=== PATIENT | female | born 1935 | race Caucasian/White ===

== ENCOUNTER 2017-01-06 17:29 | Inpatient (IN) | payer MEDICARE, BC ==
--- NOTE | ~2017-01-06 | CO ---
Unit #: [id number] #: [id number] Patient: JOSSY REDD [id number] [address] [place], [place] [address] [id number] I MR#: [id number] NAME: JOSSY REDD. ROOM: 55 Age: 81 Sex: F Admission Date: 01/06/2017 : 1935 Attending Physician: Josselyn Hope M.D. Primary Care Physician: Letty Edwards M.D. CONSULTATION REPORT HISTORY OF PRESENT ILLNESS Ms. Jossy Redd is a lady with a history of no significant pulmonary issues, but history of lung cancer, status post resection in 1995; history of bladder cancer, status post placement of ileal conduit; who now presents with worsening shortness of breath for approximately 2 weeks. The patient was hospitalized in 12/24/2016 to 12/25/2016 with chest tightness. The patient had CT chest at that time which was negative. She did have some rib fractures and she did have emphysema. The patient was continued to have shortness of breath. Therefore, she went to her primary care doctor and approximately 1 week ago, she was placed on antibiotics and steroids. She does not recall the name of either the antibiotic or the steroids. She now presents with worsening shortness of breath. In the emergency room, she is being admitted for respiratory distress. Blood gas; 7.405, 39.5, 56.8 on room air. The patient denies previous oxygen, denies previous inhaler use. The patient was seen with occasional productive cough, anorexia, weakness. No abdominal pain. No nausea, vomiting, diarrhea, fevers or chills. PAST MEDICAL HISTORY Significant for history of chest pain, hypertension, history of lung carcinoma, history of bladder cancer, history of diverticular disease, history of degenerative joint disease, history of fall approximately 1 month of rib fractures. PAST SURGICAL HISTORY Significant for radical cystectomy with ileal conduit placement, right lower lobe lobectomy, history of colonoscopy, history of cataract surgery, history of hysterectomy. SOCIAL HISTORY The patient lives alone. Drives independently. Quit smoking multiple years ago. No history of alcohol or polysubstance use. FAMILY HISTORY Dad had early at age 57 likely myocardial infarction, otherwise family history negative for respiratory or cardiac issues. ALLERGIES The patient is allergic to promethazine, ciprofloxacin, penicillin, naproxen, ampicillin, Keflex, nitrofurantoin, Pyridium, and Levaquin. HOME MEDICATIONS Include Citracal plus D daily, multivitamin daily, Zestril 2.5 mg daily, Tylenol 500 mg q.6 hours p.r.n., aspirin 81 mg daily, tramadol 50 mg Unit #: [id number] #: [id number] Patient: JOSSY REDD Nidhi gonzáles. p.r.n., promethazine with codeine 5 mL q.4 hours p.r.n. REVIEW OF SYSTEMS Complete review of systems is negative except as indicated in the history of present illness. The patient may have had a little bit of weight loss. PHYSICAL EXAMINATION VITAL SIGNS: T-current is 97.4, pulse 88, respiratory rate 16, blood pressure 139/87 maximum blood pressure. HEENT: Extraocular movements are intact. CHEST: Clear to auscultation bilaterally. CARDIOVASCULAR: Regular rate. No gallop. NECK: Shows no accessory muscle use. EXTREMITIES: Shows no evidence of edema. SKIN: Shows no rashes. ASSESSMENT AND PLAN 1. An 81-year-old lady with acute respiratory failure likely chronic obstructive pulmonary disease exacerbation. I am going to increase the steroids a little bit. Continue scheduled nebs. I would like to keep the patient having nebs every 4 hours while she is awake. 2. Hypoxia. We are going to check a carboxyhemoglobin, but likely this is due to progressive chronic obstructive pulmonary disease. 3. Scheduled nebs and hopefully we will be able to get the patient out of treatment to home in 3 to 4 days. Thank you very much for this consult and allowing us to participate in the care of this patient. Please page me at [phone] if you have any questions. Dictated by... Leticia Logan TD: 01/07/2017 23:11 JOB #: [id number] CONSULTATION REPORT X Bucky Jeff MD CONSULTATION REPORT
--- NOTE | ~2017-01-06 | DS ---
Unit #: [id number] #: [id number] Patient: JOSSY REDD [id number] [address] [place], [place] [address] [id number] I MR#: [id number] NAME: JOSSY REDD. ROOM: 55 Age: 81 Sex: F Admission Date: 01/06/2017 : 1935 Discharge Date: 01/08/2017 Attending Physician: Josselyn Hope M.D. Primary Care Physician: Letty Edwards M.D. DISCHARGE SUMMARY PRINCIPAL DIAGNOSES 1. Acute exacerbation of chronic obstructive pulmonary disease. 2. Acute hypoxic respiratory failure, now resolved. 3. Acute kidney injury, likely a combination of prerenal with underlying DAVE inhibitor use. 4. Hypertension. 5. History of bladder cancer. 6. Recent rib fracture, right sided. CLIENT ADVISOR Dr. Jeff - Pulmonology. PROCEDURES Chest x-ray on January 06, 2017, with no acute findings. CLINICAL HISTORY/HOSPITAL COURSE Ms. Redd is a very nice 81-year-old female who presents to the emergency department with dyspnea. Please refer to H and P for further details. O2 sats were normal in the emergency department but ABG revealed decreased pO2 of 56 and patient was subsequently admitted. The patient was place don IV Solu-Medrol in addition to empiric doxycycline and pulmonology was consulted. After a tapering of prednisone today, patient states she feels quite a bit better and her dyspnea has resolved. Room air oxygen saturations are normal at 95% and I am currently awaiting an ambulating O2 saturation. Assuming this is normal, I think she can be safely discharged home. I will note creatinine increased a bit to as high as 1.4 during hospitalization. Her baseline appears normal at approximately 1. Blood pressure has remained stable. I am going to discontinue her lisinopril and place her on a low dose of Norvasc and blood pressure can be followed up by her primary care provider. The patient's other chronic conditions remain stable. DISCHARGE CONDITION Stable. DISCHARGE STATUS Discharge to home. DISCHARGE MEDICATIONS 1. Norvasc 5 mg, half tablet p.o. daily. Unit #: [id number] #: [id number] Patient: JOSSY REDD 2. Doxycycline 100 mg p.o. b.i.d. for another three days. 3. Albuterol inhaler, one to two puffs every four hours p.r.n. for shortness of breath. 4. Prednisone taper 10 mg tablets, four tablets for three days, then three tablets for three days, then two tablets for three days, then one tablet for three days, then discontinue. 5. Tylenol 500 mg p.o. every four to six hours p.r.n. for pain. 6. Daily multivitamin. 7. Aspirin 81 mg daily. 8. Tramadol 50 mg b.i.d. p.r.n. for pain. 9. Citracal plus D, one tablet daily. DISCHARGE INSTRUCTIONS The patient was instructed to follow a heart healthy diet. She can increase her activity as tolerated. FOLLOWUP Patient will follow up with Dr. Jeff in approximately one month. She should follow up with Dr. Edwards, her primary care provider, in one month as well. Dictated by... Josselyn Hope M.D. NAMAN/paty TD: 01/10/2017 07:26 JOB #: [id number] DISCHARGE SUMMARY X Josselyn Hope MD X DISCHARGE SUMMARY
--- NOTE | ~2017-01-06 | CR63 ---
[facility] A Service of [facility] RADIOLOGY TEXT RESULTS PATIENT: JOSSY REDD LOCATION: [facility] : 35 UNIT #: [id number] AGE: [address]: Josselyn Hope MD SEX: F ORDER DR: [id number] [facility] [address]. [place], [place] [address] [id number] I MR#: [id number] Acc #: [id number] NAME: JOSSY REDD. : 1935 SEX: F STUDY DATE/TIME: 01/08/2017 7:48 UNIT: [facility] ROOM: [facility] STUDY DESCRIPTION: CR Chest 2 View Attending Physician: Josselyn Hope M.D. Ordering Physician: Eddie Hart M.D. Primary Care Physician: Letty Edwards M.D. MEDICAL IMAGING REPORT This report is preliminary unless electronic signature is present EXAM Chest 2 views 01/08/2017 INDICATIONS 81-year-old female with cough, congestion, shortness of air for a month. History of bladder cancer. TECHNIQUE Two-view chest COMPARISON 01/06/2017 FINDINGS Cardiac silhouette within normal limits. Vascularity unremarkable. There is no pneumothorax. No dense consolidation or pleural effusion. Probable bibasilar fibrosis and scarring right greater than left. Mild elevation or eventration of the right hemidiaphragm unchanged. There is thoracic spondylosis. IMPRESSION 1. Chronic-appearing lung changes. No definite superimposed active disease. 2. There are surgical changes in the right lung base. Dictated by... Alejo Gonzalez M.D. THIS IS AN ELECTRONICALLY VERIFIED REPORT Alejo Gonzalez M.D. at 01/09/2017 7:19 AM ESTHELA/ryan TD: 01/08/2017 15:02 [facility] A Service [facility] RADIOLOGY TEXT RESULTS PATIENT: JOSSY REDD LOCATION: [facility] : 35 UNIT #: [id number] AGE: [address]: Josselyn Hope MD SEX: F ORDER DR: MARIOLA #: [id number] MEDICAL IMAGING REPORT COPY
--- NOTE | ~2017-01-06 | HP ---
Unit #: [id number] #: [id number] Patient: JOSSY REDD [id number] [address] [facility]. [place], [place] [address] [id number] I MR#: [id number] NAME: JOSSY REDD. ROOM: 85999 Age: 81 Sex: F Admission Date: 01/06/2017 : 1935 Attending Physician: Steffanie Sanchez M.D. Primary Care Physician: Letty Edwards M.D. HISTORY AND PHYSICAL CHIEF COMPLAINT Short of breath. HISTORY OF PRESENT ILLNESS The patient is an 81-year-old female with past medical history of hypertension, lung cancer, bladder cancer, diverticular disease and degenerative joint disease who presented to the emergency department for evaluation of the above. Of note, the patient was hospitalized at [facility] December 24 through the 2016 for chest pain. She underwent CT of the chest PE protocol during that admission that showed no PE. She did have some nondisplaced fractures of the right 5th, 6th, 7th and possibly 8th ribs. Background emphysema was noted. I do not see that she had a stress test, but per the discharge summary, she was seen by cardiology. It is unclear if she had an echocardiogram. She was discharged home. She states that she has been short of breath since discharge. She states that she has dyspnea on exertion when walking across the room. She reports an occasionally productive cough. She states that she has 2-pillow orthopnea. She denies any paroxysmal nocturnal dyspnea. She has had decreased appetite. She denies any abdominal pain. No diarrhea. She does have constipation. In the emergency department chest x-ray showed no acute abnormality. BNP is 166. Arterial blood gas showed pH of 7.405, pCO2 of 39.5, pO2 of 56.8 on room air. She was given 125 mg of Solu-Medrol. She is being admitted to [facility] for evaluation and further treatment. PAST MEDICAL HISTORY 1. Admission to [facility] December 24 through the 2016 for chest pain. 2. Hypertension. 3. History of lung carcinoma status post lung resection back in 1995. 4. History of bladder cancer status post bladder removal and ileal conduit. 5. History of diverticular disease. 6. Degenerative joint disease. 7. History of fall a little over a month ago with rib fractures. PAST SURGICAL HISTORY 1. Radical cystectomy with ileal conduit placement. 2. Right lower lobectomy. 3. Colonoscopy. Unit #: [id number] #: [id number] Patient: JOSSY REDD 4. Cataract surgery. 5. Hysterectomy. SOCIAL HISTORY The patient lives alone. She still drives apparently. She quit smoking years ago. There is no alcohol or illicit drug use. FAMILY HISTORY Notable for her dad dieing at the age of 57 of a myocardial infarction. Her mother at the age of 86. ALLERGIES Promethazine, ciprofloxacin, penicillin, naproxen, ampicillin, cephalexin, nitrofurantoin, Cipro, phenazopyridine, Levaquin. HOME MEDICATIONS 1. Citracal plus D daily. 2. Multivitamin daily. 3. Zestril 2.5 mg daily. 4. Tylenol 500 mg q.4-6 hours p.r.n. 5. Aspirin 81 mg daily. 6. Tramadol 50 mg b.i.d. p.r.n. 7. Promethazine/codeine 5 mL q.4 hours p.r.n. REVIEW OF SYSTEMS A complete review of systems is negative except as indicated in the HPI. The patient denies any swelling in her legs. She states that she may have lost a few pounds since she has not had a good appetite. PHYSICAL EXAMINATION VITAL SIGNS: Temperature is 97.5, pulse 98, respirations 20, blood pressure 153/58, oxygen saturation 96% on room air. GENERAL: The patient is a female who is awake and alert in no acute distress. HEENT: The head is atraumatic. Mucous membranes are moist. NECK: Supple. Trachea is midline. CARDIOVASCULAR: Regular rate and rhythm. RESPIRATORY: Lungs demonstrate decreased breath sounds bilaterally. Breathing is not labored with conversation. ABDOMEN: Soft, nontender with bowel sounds present in all 4 quadrants. She does have an ileal conduit with clear urine. NEUROLOGIC: The patient is awake and alert. She follows commands. PSYCHIATRIC: Mood and affect are normal. The patient is cooperative. SKIN: Skin of examined areas is warm and dry. DIAGNOSTIC TESTS CARDIOVASCULAR: EKG shows normal sinus rhythm with a rate of 61 beats per minute. IMAGING: Chest x-ray shows no acute abnormality. CT of the chest PE protocol from December 24, 2016 showed no PE. There were nondisplaced fractures of the right 5th, 6th, 7th and, possibly, 8th ribs. Background emphysema was noted. LABORATORY: Arterial blood gas from today shows pH of 7.405, pCO2 of 39.5, pO2 of 56.8 on room air. Troponin is less than 0.05. Complete blood count is completely normal. Complete metabolic panel notable for BUN and Unit #: [id number] #: [id number] Patient: JOSSY REDD creatinine of 45 and 1.4 respectively. AST and ALT are 53 and 49 respectively. BNP is 166. ASSESSMENT 1. The patient is an 81-year-old female with acute respiratory failure, hypoxic. 2. Likely COPD exacerbation. 3. Acute kidney injury. The patient's creatinine was 1 on December 25, 2016. It is 1.4 today. She is on lisinopril, which could be contributing. 4. Transaminitis. The patient's AST and ALT were not checked during the last admission but have previously been normal. 5. Hypertension. 6. History of lung cancer. 7. History of bladder cancer. 8. Diverticular disease. 9. Degenerative joint disease. 10. History of fall with rib fractures. 11. Former smoker. PLAN 1. Admit to intermediate level. 2. Healthy heart diet. 3. Supplemental oxygen, 2-4 liters, to maintain saturations greater than 92%. 4. DuoNeb q.4 hours while awake and q.2 hours p.r.n. 5. Solu-Medrol 80 mg IV q.12 hours. 6. Mucinex 600 mg p.o. b.i.d. 7. Doxycycline 100 mg p.o. b.i.d. for possible acute bronchitis. 8. Consult Dr. Jeff regarding likely COPD. 9. Serial cardiac enzymes. 10. Two-D echo if not done within the past year. 11. Strict I's and O's. 12. Daily weights. 13. Incentive spirometry. 14. Repeat labs in the morning. 15. SCDs for DVT prophylaxis. 16. Protonix for GI prophylaxis since the patient will be on Solu-Medrol. 17. Additional workup and consultants based on above. 18. Will hold lisinopril, which could be contributing to acute kidney injury. Dictated by Leticia Dejesus/elizabeth TD: 01/07/2017 07:41 JOB #: [id number] Unit #: [id number] #: [id number] Patient: JOSSY REDD HISTORY AND PHYSICAL X Steffanie Sanchez MD HISTORY AND PHYSICAL
--- NOTE | ~2017-01-06 | DS ---
Unit #: [id number] #: [id number] Patient: JOSSY REDD [id number] [address] [place], [place] [address] [id number] I MR#: [id number] NAME: JOSSY REDD. ROOM: 55 Age: 81 Sex: F Admission Date: 01/06/2017 : 1935 Discharge Date: 01/08/2017 Attending Physician: Josselyn Hope M.D. Primary Care Physician: Letty Edwards M.D. DISCHARGE SUMMARY ADDENDUM The patient's ambulating oxygen saturation was normal as long as she walked upright. I will note, however, the patient, despite having her diagnosis discussed with her, could not remember meeting me a few hours after and did not remember the discussion we had. I went in a second time and explained this to the patient, and she can be discharged home. However, she does demonstrate, at least in the hospital, some signs of memory loss, and this can be worked up as an outpatient. Dictated by... Josselyn Hope M.D. NAMAN/elizabeth TD: 01/10/2017 08:04 JOB #: [id number] DISCHARGE SUMMARY X Josselyn Hope MD DISCHARGE SUMMARY
--- NOTE | ~2017-01-06 | CR72 ---
[facility] A Service of [facility] RADIOLOGY TEXT RESULTS PATIENT: JOSSY REDD LOCATION: [facility] [id number] : 35 UNIT #: [id number] AGE: [address]: Steffanie Sanchez MD SEX: F ORDER DR: [id number] [facility] [address] [place], [place] [address] [id number] I MR#: [id number] #: [id number] NAME: JOSSY REDD. : 1935 SEX: F STUDY DATE/TIME: 01/06/2017 16:39 UNIT: [facility] ROOM: [address]4521 STUDY DESCRIPTION: CR Chest Single View Portable Attending Physician: Steffanie Sanchez M.D. Ordering Physician: Robbin Pizarro M.D. Primary Care Physician: Letty Edwards M.D. MEDICAL IMAGING REPORT This report is preliminary unless electronic signature is present EXAM Portable chest HISTORY Shortness of air and cough for 1 day. FINDINGS The cardiac size and pulmonary vascularity are normal. Mild elevation of the right hemidiaphragm. Mild linear atelectasis or scarring in the right base. Mild mid-right thoracic curve. No airspace infiltrates or pleural effusions. Surgical clips and behzad in the inferomedial right lung. IMPRESSION No acute findings. Chronic postop changes in the right lung base. Dictated by... Mane Teresa M.D. THIS IS AN ELECTRONICALLY VERIFIED REPORT Mane Teresa M.D. at 01/07/2017 1:55 PM DFOsiel/moises TD: 01/07/2017 09:40 JOB #: [id number] MEDICAL IMAGING REPORT COPY
--- NOTE | ~2017-01-06 | EKG ---
PATIENT: JOSSY REDD UNIT #: [id number] Ventricular Rate: 61 BPM Atrial Rate: 61 BPM P-R Interval: 136 ms QRS Duration: 90 ms Q-T Interval: 424 ms QTC Calculation(Bezet): 426 ms P Mims: -27 degrees Calculated R Mims: 47 degrees Calculated T Mims: 41 degrees Diagnosis Line: Normal sinus rhythm Diagnosis Line: Nonspecific ST abnormality Diagnosis Line: Abnormal ECG Diagnosis Line: When compared with ECG of 25-DEC-2016 06:00, Diagnosis Line: No significant change was found Diagnosis Line: Confirmed by REYES FOLEY MD ([id number]) on Diagnosis Line: 01/09/2017 4:01:02 PM INTERPRETING MD: OG STOKES
[2017-01-06 16:27] LABS: ARTERIAL BLD GAS O2 SATURATION 89.6 % (90.0-100.0); ARTERIAL BLOOD GAS CARBOXY HB 0.9 %sat (0.0-9.0); ARTERIAL BLOOD GAS HCO3 24.7 mmol/L; ARTERIAL BLOOD GAS MET HB 1.1 %sat (0.0-2.0); ARTERIAL BLOOD GAS PCO2 39.5 mmHg (35.0-45.0); ARTERIAL BLOOD GAS pH 7.405 (7.350-7.450)
[2017-01-06 16:28] LABS: ARTERIAL BLOOD GAS ALLEN TEST NORMAL; ARTERIAL BLOOD GAS ART SITE LEFT RADIAL; ARTERIAL BLOOD GAS PO2 56.8 mmHg (80.0-100); ARTERIAL DRAW? YES
[2017-01-06 16:40] LABS: BASOPHIL% 0.5 % (0-2.5); EOSINOPHIL# 0.1 X10e3 (0-0.7); EOSINOPHIL% 1.8 % (0.0-7.0); HEMATOCRIT 40.2 % (35.0-45.0); HEMOGLOBIN 13.2 gm/dL (12.0-16.0); LYMPHOCYTE# 1.1 X10e3 (1.0-3.5); LYMPHOCYTE% 22.3 % (17.0-45.0); MEAN CELL VOLUME 88.2 FL (83-96); MEAN CORPUSCULAR HEMOGLOBIN 29.1 PG (28-34); MEAN PLATELET VOLUME 7.9 FL (6.5-11.5); MONOCYTE# 0.5 X10e3 (0-1.0); MONOCYTE% 9.4 % (3.0-12.0); NEUTROPHIL# 3.2 X10e3 (1.5-7.1); PLATELET COUNT 163 X10e3 (140-420); RED BLOOD COUNT 4.56 X10e (3.90-5.30); RED CELL DISTRIBUTION WIDTH 14.7 % (11.0-15.5); WHITE BLOOD COUNT 4.9 X10e3 (4.0-10.5)
[2017-01-06 16:53] LABS: DIFF IND NO
[2017-01-06 16:53] LABS: POC - TROPONIN <0.05 ng/mL (<=0.05)
[2017-01-06 16:57] LABS: BILIRUBIN, DIRECT 0.2 mg/dL (0.0-0.2); BILIRUBIN,INDIRECT 0.8 mg/dL (0.0-0.9); BUN/CREATININE RATIO 32.14; CALCIUM SERUM 9.3 mg/dL (8.4-10.2); CREATININE SERUM 1.4 mg/dL (0.6-1.4); GLOM FILT RATE Estimated 38.4 mL/min (>60); POTASSIUM 4.4 mmol/L (3.5-5.1); PROTEIN TOTAL SERUM 7.6 g/dL (6.0-8.3)
[~2017-01-06 17:29] MED LIST: ACETAMINOPHEN PO; ALLERGY RELIEF10 M1 PO; AZITHROMYCIN500 MG PO; BAYER CHEWABLE81 MG PO; CENTRUM SILVER PO; CITRACAL + D CA1 TA1 PO; CITRACAL200 MG PO; DOXYCYCLINE HY100 M3 PO; FLEXERIL10 MG PO; LISINOPRIL PO; NAPROXEN PO; PROMETH-CODEIN 65 ML PO; ROBITUSSIN100 MG/51 PO; TOPROL XL PO; TRAMADOL HCL50 M1 PO; TYLENOL ES; TYLENOL325 M1 PO
[2017-01-06 23:49] LABS: CK TOTAL 51 IU/L (26-140)
[2017-01-07 04:49] LABS: HEMATOCRIT 38.7 % (35.0-45.0); HEMOGLOBIN 12.5 gm/dL (12.0-16.0); MEAN CELL VOLUME 88.7 FL (83-96); MEAN CORPUSCULAR HEMOGLOBIN 28.6 PG (28-34); MEAN CORPUSCULAR HGB CONC 32.3 g/dL (30-36); RED BLOOD COUNT 4.37 X10e (3.90-5.30); RED CELL DISTRIBUTION WIDTH 14.7 % (11.0-15.5); WHITE BLOOD COUNT 2.7 X10e3 (4.0-10.5)
[2017-01-07 05:23] LABS: CK TOTAL 35 IU/L (26-140)
[2017-01-07 05:55] LABS: ALBUMIN SERUM 3.6 g/dL (3.5-5.0); BILIRUBIN,TOTAL 0.6 mg/dL (0.2-2.0); CALCIUM SERUM 8.7 mg/dL (8.4-10.2); CREATININE SERUM 1.3 mg/dL (0.6-1.4); GLOM FILT RATE Estimated 41.8 mL/min (>60); POTASSIUM 4.6 mmol/L (3.5-5.1); PROTEIN TOTAL SERUM 7.6 g/dL (6.0-8.3)
[2017-01-08 05:38] LABS: HEMATOCRIT 38.7 % (35.0-45.0); HEMOGLOBIN 12.5 gm/dL (12.0-16.0); MEAN CELL VOLUME 88.4 FL (83-96); MEAN CORPUSCULAR HEMOGLOBIN 28.5 PG (28-34); MEAN CORPUSCULAR HGB CONC 32.2 g/dL (30-36); MEAN PLATELET VOLUME 8.4 FL (6.5-11.5); RED BLOOD COUNT 4.37 X10e (3.90-5.30); RED CELL DISTRIBUTION WIDTH 15.1 % (11.0-15.5)
[2017-01-08 05:57] LABS: ALBUMIN SERUM 3.5 g/dL (3.5-5.0); BILIRUBIN,TOTAL 0.7 mg/dL (0.2-2.0); CALCIUM SERUM 8.9 mg/dL (8.4-10.2); CREATININE SERUM 1.2 mg/dL (0.6-1.4); GLOM FILT RATE Estimated 45.8 mL/min (>60); POTASSIUM 4.8 mmol/L (3.5-5.1)
[2017-01-08] MEDS ORDERED: ACETAMINOPHEN PO (14:31)
[2017-01-08] MEDS ORDERED: ULTRAM PO (14:34)
[2017-01-08] MEDS ORDERED: NORVASC PO (14:35)
[2017-01-08] MEDS ORDERED: PREDNISONE10 MG PO (14:36)
[2017-01-08] MEDS ORDERED: DOXYCYCLINE HY100 M3 PO (14:36)
[2017-01-08] MEDS ORDERED: ALBUTEROL17 GM INH (14:37)
== END 2017-01-08 17:50 | disposition home or self-care (01) | DRG 189 ==
LOC: CED 17:29 → CEDOF 18:25 → C5B 01-07 16:07
PROVIDERS: Emergency Medicine; Family Medicine; Internal Medicine
PROC: B246YZZ Ultrasonography of Right and Left Heart using Other Contrast (ICD-10-PCS; principal; 2017-01-07)
DX: J96.01 Acute respiratory failure with hypoxia (principal); N17.9 Acute kidney failure, unspecified; J44.1 Chronic obstructive pulmonary disease with (acute) exacerbation; I10 Essential (primary) hypertension; Z98.49 Cataract extraction status, unspecified eye; Z90.710 Acquired absence of both cervix and uterus; Z88.1 Allergy status to other antibiotic agents; Z88.0 Allergy status to penicillin; Z88.8 Allergy status to other drugs, medicaments and biological substances; Z79.82 Long term (current) use of aspirin; Z91.81 History of falling; K59.00 Constipation, unspecified; Z85.118 Personal history of other malignant neoplasm of bronchus and lung; Z85.51 Personal history of malignant neoplasm of bladder; R74.0 Nonspecific elevation of levels of transaminase and lactic acid dehydrogenase [LDH]; S22.41XD Multiple fractures of ribs, right side, subsequent encounter for fracture with routine healing; M19.90 Unspecified osteoarthritis, unspecified site
CPT/HCPCS: 36415; 36600; 71010; 71020; 80048; 80053; 80076; 82550; 82553; 82803; 83880; 84484; 85025; 85027; 87070; 87633; 93005; 93306; 94640; 94760; 96374; 97162; 97166; 97530; 97535; 99285; G8987-GO; G8988-GO; G8990-GP; G8991-GP; J2920; J2930

== ENCOUNTER → 2017-02-05 | Outpatient (CLI) | payer MEDICARE, BC ==
[~2017-02-05] MED LIST changes: +ALBUTEROL17 GM INH; +NORVASC PO; +PREDNISONE10 MG PO; +ULTRAM PO
--- NOTE | ~2017-02-05 | TH ---
Unit #: [id number] #: [id number] Patient: JOSSY REDD [id number] [address] [address] [id number] O MR#: [id number] NAME: JOSSY REDD. : 1935 SEX: F STUDY DATE/TIME: 02/05/2017 UNIT: [facility] ROOM: STUDY DESCRIPTION: Attending Physician: Chuck Ervin M.D. Referring Physician: Chuck Ervin M.D. Primary Care Physician: Letty Edwards M.D. CARDIOLOGY REPORT EXAM Nuclear Stress Test. INDICATION Chest discomfort and dyspnea. SUMMARY Patient underwent nuclear stress test. She received a resting dose of 12 mCi and a stress dose of 30.2 mCi. On gated imaging, patient appears to have normal wall motion with a preserved ejection fraction. Patient's LVEF is 61%. On perfusion imaging, comparing rest and stress images, there appears to be no reversible perfusion defects. CONCLUSION 1. No obvious ischemia. 2. Preserved ejection fraction. 3. ECG portion to be dictated separately. Dictated by... Kathia Damon M.D. [place]/am TD: 02/05/2017 17:49 JOB #: [id number] CARDIOLOGY REPORT Page 1 of 1 X KATHIA DAMON MD CARDIOLOGY REPORT
--- NOTE | ~2017-02-05 | ST ---
Unit #: [id number] #: [id number] Patient: JOSSY REDD [id number] [address] [address] [id number] O MR#: [id number] NAME: JOSSY REDD. : 1935 SEX: F STUDY DATE/TIME: 02/05/2017 UNIT: [facility] ROOM: STUDY DESCRIPTION: Attending Physician: Chuck Ervin M.D. Referring Physician: Chuck Ervin M.D. Primary Care Physician: Letty Edwards M.D. CARDIOLOGY REPORT EXAM EKG portion of Lexiscan Cardiolite. REASON FOR EXAM Shortness of breath, chest pain. FINDINGS Baseline EKG shows normal sinus rhythm, rate of 75 beats per minute. PROCEDURE Next, 0.4 mg of Lexiscan was injected per protocol followed by Cardiolite. During the infusion, the patient did experience shortness of breath, cough, and some chest tightness. These symptoms resolved in the recovery period. There were no ST or T-wave changes noted during the testing. There was no ectopy. The test was stopped due to protocol completion. IMPRESSION 1. Negative EKG portion of Lexiscan Cardiolite. 2. No ST segment changes suggestive of ischemia. 3. Complaint of shortness of breath during effusion as well as cough and some mild chest tightness. These symptoms resolved in the recovery period. 4. No arrhythmias were noted. 5. Please correlate with nuclear imaging. Dictated by... Karyn AngeloRShreyaNShreya for Chuck Ervin M.D. LMW/jasper TD: 02/05/2017 11:57 JOB #: [id number] Unit #: [id number] #: [id number] Patient: JOSSY REDD CARDIOLOGY REPORT Page 1 of 1 X Tamiko Schwarz APRN CARDIOLOGY REPORT
== END | disposition home or self-care (01) ==
LOC: CNUC 08:41
DX: R07.9 Chest pain, unspecified (principal); R06.02 Shortness of breath
CPT/HCPCS: 78452; 93017; A9500; J2785

== ENCOUNTER → 2017-04-09 | Outpatient (CLI) | payer MEDICARE, BC ==
--- NOTE | ~2017-04-09 | PFT ---
[id number] [facility] [address] [place], [place] [address] [id number] O MR#: [id number] NAME: JOSSY REDD ROOM: SEX: F STUDY DATE/TIME: 04/19/2017 : 1935 AGE: 81 STUDY DESCRIPTION: Attending Physician: Bucky Jeff Referring Physician: Bucky Jeff Primary Care Physician: Letty Edwards M.D. PULMONARY DIAGNOSTIC REPORT EXAM Pulmonary function test. DATE OF SERVICE 04/19/2017 FINDINGS Good effort and cooperation. Test meets ATS criteria. Please see scan sheet for flow volume loops and actual lung volume values. Spirometry shows moderate obstruction and there is nonsignificant bronchodilator response. There is some air trapping present. There is severe diffusion capacity deficit which only partially corrects with alveolar ventilation. Dictated by... Leticia Logan/jose TD: 05/25/2017 09:33 JOB #: [id number] PULMONARY DIAGNOSTIC REPORT Page 1 of 1
== END | disposition home or self-care (01) ==
LOC: CRC 12:37
DX: J44.9 Chronic obstructive pulmonary disease, unspecified (principal)
CPT/HCPCS: 94060; 94726; 94729